=== PATIENT | male | born 1970 | race African-American/Black ===

== ENCOUNTER 2018-05-12 13:20 | Emergency (ER) | payer OTHER ==
[2018-05-12] MEDS: ALBUTEROL 0.083% (NEB) 2.5 MG/3 ML AMP HHN (13:43)
[2018-05-12 13:45] LABS: HEMOGLOBIN 12.4 g/dl (14.0-18.0); MEAN CORPUSCULAR HEMOGLOBIN 29.2 pg (29.0-33.0); MEAN CORPUSCULAR HGB CONC 35.4 g/dl (32.0-37.0); MEAN CORPUSCULAR VOLUME 82.5 fl (82.0-101.0); MEAN PLATELET VOLUME 9.9 fl (7.4-10.4); PLATELET COUNT 188 10^3/UL (140-415); POSITIVE DIFF @See below; RED BLOOD COUNT 4.24 10^6/ul (4.70-6.10); RED CELL DISTRIBUTION WIDTH 14.1 % (11.5-14.5)
[2018-05-12 13:45] LABS: WHITE BLOOD COUNT 2.6 10^3/ul (4.8-10.8)
[2018-05-12] MEDS: SOD CHLORIDE 0.9% 500 ML IV (13:51)
[2018-05-12] MEDS: KETOROLAC 30 MG INJ IV (13:51)
[2018-05-12 14:04] LABS: ALANINE AMINOTRANSFERASE 61 IU/L (13-69); ALBUMIN 3.7 g/dl (3.3-4.9); ALBUMIN/GLOBULIN RATIO 1.08; ALKALINE PHOSPHATASE 78 IU/L (42-121); ANION GAP 11 (8-16); ASPARTATE AMINO TRANSFERASE 66 IU/L (15-46); BILIRUBIN,INDIRECT 0.3 mg/dl (0-1.1); BILIRUBIN,TOTAL 0.3 mg/dl (0.2-1.3); BLOOD UREA NITROGEN 10 mg/dl (7-20); CALCIUM 8.7 mg/dl (8.4-10.2); CARBON DIOXIDE 25 mmol/L (21-31); CHLORIDE 102 mmol/L (97-110); GLUCOSE 87 mg/dl (70-220); POTASSIUM 3.1 mmol/L (3.5-5.1); SODIUM 135 mmol/L (135-144); TOTAL PROTEIN 7.1 g/dl (6.1-8.1)
[2018-05-12 14:15] LABS: B-TYPE NATRIURETIC PEPTIDE 355 PG/ML (0-125)
[2018-05-12 14:20] LABS: TROPONIN-I < 0.010 ng/ml (0.000-0.120)
[2018-05-12 14:26] LABS: ADD MAN DIFF? YES
[2018-05-12] MEDS: POTASSIUM CHLORIDE (SR) 20 MEQ TAB PO (14:29)
[2018-05-12 14:50] LABS: ANISOCYTOSIS 1+ (0-0); BAND NEUTROPHILS #M 0.5 10^3/ul (0.0-0.6); BAND NEUTROPHILS % (M) 20 % (0-4); EOSINOPHILS % (M) 7 % (0-7); GIANT THROMBO% (M) 1 % (0-0); LYMPHOCYTES #M 0.1 10^3/ul (0.8-2.9); LYMPHOCYTES % (M) 7 % (15-51); MONOCYTE #M 0.5 10^3/ul (0.3-0.9); MONOCYTES % (M) 20 % (0-11); MYELOCYTES #M 0.1 10^3/ul (0.0-0.0); MYELOCYTES % (M) 4 % (0-0); OVALOCYTES 1+ (0-0); PLATELET ESTIMATE NORMAL; POLYCHROMASIA 1+ (0-0); REACTIVE LYMPHOCYTES% (M) 2 % (0-0); SEG NEUT #M 1.1 10^3/ul (1.6-7.5); SEGMENTED NEUTROPHILS (M) % 40 % (39-77); SMUDGE%M 4 % (0-0)
== END 2018-05-12 17:25 | disposition home or self-care (01) ==
LOC: E/R 13:20
DX: J20.9 Acute bronchitis, unspecified (principal); D72.819 Decreased white blood cell count, unspecified; E87.6 Hypokalemia; F17.210 Nicotine dependence, cigarettes, uncomplicated
CPT/HCPCS: 36415; 71045; 80053; 83880; 84484; 85025; 94664; 96374; 99284-25

== ENCOUNTER 2018-06-15 11:22 | Inpatient (IN) | payer OTHER ==
[2018-06-15 11:57] LABS: ABNORMAL IP MESSAGE 1; HEMATOCRIT 35.7 % (42.0-52.0); HEMOGLOBIN 12.4 g/dl (14.0-18.0); MEAN CORPUSCULAR HEMOGLOBIN 29.5 pg (29.0-33.0); MEAN CORPUSCULAR HGB CONC 34.7 g/dl (32.0-37.0); MEAN PLATELET VOLUME 9.5 fl (7.4-10.4); PLATELET COUNT 228 10^3/UL (140-415); POSITIVE DIFF @See below; RED CELL DISTRIBUTION WIDTH 13.6 % (11.5-14.5)
[2018-06-15 12:02] LABS: ADD MAN DIFF? YES
[2018-06-15] MEDS: IPRATROPIUM (NEB) 0.5 MG/2.5 ML AMP NEB (12:03)
[2018-06-15] MEDS: LEVALBUTEROL (NEB) 1.25 MG/0.5 ML AMP INH (12:03)
[2018-06-15] MEDS: SOD CHLORIDE 0.9% 1,860 ML IV (12:07)
[2018-06-15 12:20] LABS: INR 0.88; PARTIAL THROMBOPLASTIN TIME 29.6 Sec (25.0-35.0); PT RATIO 0.9
[2018-06-15 12:28] LABS: ANISOCYTOSIS 1+ (0-0); BAND NEUTROPHILS #M 0.4 10^3/ul (0.0-0.6); BAND NEUTROPHILS % (M) 15 % (0-4); LYMPHOCYTES #M 0.3 10^3/ul (0.8-2.9); LYMPHOCYTES % (M) 13 % (15-51); MONOCYTE #M 0.3 10^3/ul (0.3-0.9); MONOCYTES % (M) 10 % (0-11); PLATELET ESTIMATE NORMAL; REACTIVE LYMPHOCYTES #M 0.1 10^3/ul (0.0-0.0); REACTIVE LYMPHOCYTES% (M) 4 % (0-0); SEG NEUT #M 1.8 10^3/ul (1.6-7.5); SEGMENTED NEUTROPHILS (M) % 58 % (39-77); SMUDGE%M 5 % (0-0)
[2018-06-15 12:48] LABS: ALANINE AMINOTRANSFERASE 32 IU/L (13-69); ALBUMIN 3.8 g/dl (3.3-4.9); ALBUMIN/GLOBULIN RATIO 0.92; ALKALINE PHOSPHATASE 86 IU/L (42-121); ANION GAP 15 (8-16); ASPARTATE AMINO TRANSFERASE 44 IU/L (15-46); BILIRUBIN,INDIRECT 0.7 mg/dl (0-1.1); BILIRUBIN,TOTAL 0.7 mg/dl (0.2-1.3); BLOOD UREA NITROGEN 13 mg/dl (7-20); CALCIUM 8.7 mg/dl (8.4-10.2); CARBON DIOXIDE 25 mmol/L (21-31); CHLORIDE 100 mmol/L (97-110); CREATININE 0.77 mg/dl (0.61-1.24); GLUCOSE 100 mg/dl (70-220); POTASSIUM 3.6 mmol/L (3.5-5.1); SODIUM 136 mmol/L (135-144); TOTAL PROTEIN 7.9 g/dl (6.1-8.1)
[2018-06-15 12:50] LABS: LACTIC ACID 1.5 mmol/L (0.5-2.0)
[2018-06-15 12:51] LABS: ETHANOL < 10.0 mg/dl
[2018-06-15 12:59] LABS: ADD UMIC YES; TROPONIN-I 0.022 ng/ml (0.000-0.120); UR ASCORBIC ACID NEGATIVE (NEGATIVE); UR BACTERIA FEW /HPF (NONE SEEN); UR BILIRUBIN (Dip) 1+ mg/dL (NEGATIVE); UR BLOOD (Dip) NEGATIVE (NEGATIVE); UR CLARITY CLEAR (CLEAR); UR COLOR AMBER (YELLOW); UR GLUCOSE (Dip) NEGATIVE (NEGATIVE); UR KETONES (Dip) NEGATIVE (NEGATIVE); UR LEUKOCYTE ESTERASE (Dip) 1+ Leu/ul (NEGATIVE); UR MUCUS FEW /HPF (NONE SEEN); UR NITRITE (Dip) NEGATIVE (NEGATIVE); UR RBC 2 /HPF (0-5); UR SPECIFIC GRAVITY (Dip) 1.027 (1.003-1.030); UR SQUAMOUS EPITHELIAL CELL FEW /HPF (FEW); UR TOTAL PROTEIN (Dip) 2+ mg/dl (NEGATIVE); UR UROBILINOGEN (Dip) 2+ mg/dL (NEGATIVE); UR WBC 10 /HPF (0-5)
[2018-06-15 13:28] LABS: BARBITURATES Negative (NEGATIVE); BENZODIAZEPINES Negative (NEGATIVE); CANNABINOIDS Positive (NEGATIVE); COCAINE Negative (NEGATIVE); OPIATES Negative (NEGATIVE)
[2018-06-15] MEDS: PIPER-TAZO 3.375 GM IV (PMX) 100 ML IVPB (13:30)
[2018-06-15 13:42] LABS: AMPHETAMINE/METHAMPHETAMINE POSITIVE (NEGATIVE)
[2018-06-15] MEDS: ACETAMINOPHEN 325 MG TAB PO (13:50)
[2018-06-15 14:50] LABS: LACTIC ACID 0.8 mmol/L (0.5-2.0)
[2018-06-15 15:52] LABS: LACTIC ACID 0.8 mmol/L (0.5-2.0)
[2018-06-15] MEDS ORDERED: ONDANSETRON 4 MG INJ IV (18:30)
[2018-06-15] MEDS: DEXTROSE 5%-0.9% NACL 1,000 ML IV (20:18)
[2018-06-15] MEDS: FAMOTIDINE 20 MG TAB PO (20:18)
[2018-06-15] MEDS: CEFTRIAXONE 1 GM/50 ML (PMX) 50 ML IVPB (20:18)
[2018-06-15] MEDS: ALBUTEROL/IPRATROPIUM (NEB) 3 ML AMP HHN (20:39)
[2018-06-16] MEDS: PIPER-TAZO 3.375 GM IV (PMX) 100 ML IVPB ×3 (01:14→18:20)
[2018-06-16 06:05] LABS: ADD MAN DIFF? NO
[2018-06-16 06:10] LABS: ABNORMAL IP MESSAGE 1; BASOPHILS % 0.6 % (0.0-2.0); EOSINOPHILS % 0.9 % (0.0-7.0); HEMATOCRIT 35.6 % (42.0-52.0); HEMOGLOBIN 12.2 g/dl (14.0-18.0); LYMPHOCYTES # 0.3 10^3/ul (0.8-2.9); LYMPHOCYTES % 8.5 % (15.0-51.0); MEAN CORPUSCULAR HEMOGLOBIN 29.6 pg (29.0-33.0); MEAN CORPUSCULAR HGB CONC 34.3 g/dl (32.0-37.0); MEAN CORPUSCULAR VOLUME 86.4 fl (82.0-101.0); MEAN PLATELET VOLUME 9.6 fl (7.4-10.4); MONOCYTE # 0.3 10^3/ul (0.3-0.9); MONOCYTES % 8.3 % (0.0-11.0); NEUTROPHIL # 2.8 10^3/ul (1.6-7.5); NEUTROPHILS % 80.8 % (39.0-77.0); PLATELET COUNT 229 10^3/UL (140-415); POSITIVE DIFF @See below; RED BLOOD COUNT 4.12 10^6/ul (4.70-6.10); RED CELL DISTRIBUTION WIDTH 13.9 % (11.5-14.5)
[2018-06-16 06:10] LABS: WHITE BLOOD COUNT 3.5 10^3/ul (4.8-10.8)
[2018-06-16] MEDS: ALBUTEROL/IPRATROPIUM (NEB) 3 ML AMP HHN ×3 (07:50→19:58)
[2018-06-16 08:16] LABS: ALANINE AMINOTRANSFERASE 33 IU/L (13-69); ALBUMIN 3.2 g/dl (3.3-4.9); ALBUMIN/GLOBULIN RATIO 0.84; ALKALINE PHOSPHATASE 70 IU/L (42-121); ANION GAP 16 (8-16); ASPARTATE AMINO TRANSFERASE 34 IU/L (15-46); BILIRUBIN,INDIRECT 0.4 mg/dl (0-1.1); BILIRUBIN,TOTAL 0.4 mg/dl (0.2-1.3); BLOOD UREA NITROGEN 9 mg/dl (7-20); CALCIUM 8.1 mg/dl (8.4-10.2); CARBON DIOXIDE 22 mmol/L (21-31); CHLORIDE 105 mmol/L (97-110); CREATININE 0.73 mg/dl (0.61-1.24); GLUCOSE 94 mg/dl (70-220); POTASSIUM 3.2 mmol/L (3.5-5.1); SODIUM 140 mmol/L (135-144)
[2018-06-16] MEDS ORDERED: EMTRICITABINE 200 MG CAP PO (09:00)
[2018-06-16] MEDS ORDERED: ATAZANAVIR 200 MG CAP PO (09:00)
[2018-06-16] MEDS: FAMOTIDINE 20 MG TAB PO ×2 (09:59→21:20)
[2018-06-16] MEDS: TENOFOVIR 300 MG TAB PO (09:59)
[2018-06-16] MEDS: FOLIC ACID 1 MG TAB PO (09:59)
[2018-06-16] MEDS: ENOXAPARIN 40 MG/0.4 ML SYG SC (10:00)
[2018-06-16] MEDS: EMTRICITABINE 200 MG CAP PO (11:15)
[2018-06-16] MEDS: DEXTROSE 5%-0.9% NACL 1,000 ML IV (15:00)
[2018-06-16] MEDS: ATAZANAVIR 200 MG CAP PO (21:20)
[2018-06-17] MEDS: PIPER-TAZO 3.375 GM IV (PMX) 100 ML IVPB ×2 (01:06→10:08)
[2018-06-17] MEDS: ALBUTEROL/IPRATROPIUM (NEB) 3 ML AMP HHN ×3 (07:36→21:18)
[2018-06-17] MEDS: EMTRICITABINE 200 MG CAP PO (09:16)
[2018-06-17] MEDS: FAMOTIDINE 20 MG TAB PO ×3 (09:17→21:31)
[2018-06-17] MEDS: ATAZANAVIR 200 MG CAP PO (09:17)
[2018-06-17] MEDS: TENOFOVIR 300 MG TAB PO (09:17)
[2018-06-17] MEDS: FOLIC ACID 1 MG TAB PO (09:17)
[2018-06-17] MEDS: ENOXAPARIN 40 MG/0.4 ML SYG SC (09:18)
[2018-06-17] MEDS: DEXTROSE 5%-0.9% NACL 1,000 ML IV ×2 (11:00→18:40)
[2018-06-17] MEDS: CEFTRIAXONE 1 GM/50 ML (PMX) 50 ML IVPB (15:10)
[2018-06-18 05:38] LABS: ADD MAN DIFF? NO
[2018-06-18 05:45] LABS: ABNORMAL IP MESSAGE 1; BASOPHILS % 0.7 % (0.0-2.0); EOSINOPHILS # 0.1 10^3/ul (0.0-0.5); EOSINOPHILS % 2.7 % (0.0-7.0); HEMATOCRIT 34.5 % (42.0-52.0); LYMPHOCYTES # 0.3 10^3/ul (0.8-2.9); LYMPHOCYTES % 11.5 % (15.0-51.0); MEAN CORPUSCULAR HEMOGLOBIN 29.7 pg (29.0-33.0); MEAN CORPUSCULAR HGB CONC 34.8 g/dl (32.0-37.0); MEAN CORPUSCULAR VOLUME 85.4 fl (82.0-101.0); MEAN PLATELET VOLUME 9.8 fl (7.4-10.4); MONOCYTE # 0.3 10^3/ul (0.3-0.9); MONOCYTES % 10.5 % (0.0-11.0); NEUTROPHIL # 2.2 10^3/ul (1.6-7.5); NEUTROPHILS % 73.6 % (39.0-77.0); PLATELET COUNT 270 10^3/UL (140-415); POSITIVE DIFF @See below; RED BLOOD COUNT 4.04 10^6/ul (4.70-6.10); RED CELL DISTRIBUTION WIDTH 13.6 % (11.5-14.5)
[2018-06-18 06:06] LABS: ANION GAP 8 (8-16); BLOOD UREA NITROGEN 7 mg/dl (7-20); CALCIUM 8.4 mg/dl (8.4-10.2); CARBON DIOXIDE 29 mmol/L (21-31); CHLORIDE 105 mmol/L (97-110); CREATININE 0.68 mg/dl (0.61-1.24); GLUCOSE 94 mg/dl (70-220); POTASSIUM 3.3 mmol/L (3.5-5.1); SODIUM 139 mmol/L (135-144)
[2018-06-18] MEDS: DEXTROSE 5%-0.9% NACL 1,000 ML IV ×2 (06:23→16:04)
[2018-06-18] MEDS: ALBUTEROL/IPRATROPIUM (NEB) 3 ML AMP HHN ×3 (08:14→19:53)
[2018-06-18] MEDS: FOLIC ACID 1 MG TAB PO (09:26)
[2018-06-18] MEDS: FAMOTIDINE 20 MG TAB PO ×2 (09:26→21:09)
[2018-06-18] MEDS: TENOFOVIR 300 MG TAB PO (09:26)
[2018-06-18] MEDS: ATAZANAVIR 200 MG CAP PO (09:26)
[2018-06-18] MEDS: ENOXAPARIN 40 MG/0.4 ML SYG SC (09:29)
[2018-06-18] MEDS: BISACODYL (EC) 5 MG TAB PO ×2 (10:34→15:03)
[2018-06-18] MEDS: EMTRICITABINE 200 MG CAP PO (10:34)
[2018-06-18 14:38] LABS: LYMPHOCYTE - % CD4 (HELPER) 3 % (30-61); LYMPHOCYTE - %CD8 (SUPPRESSOR) 40 % (12-42); LYMPHOCYTE - ABSOLUTE 226 cells/uL (850-3900); LYMPHOCYTE - ABSOLUTE CD4 <20 cells/uL (490-1740); LYMPHOCYTE - ABSOLUTE CD8 90 cells/uL (180-1170); LYMPHOCYTE - CD4/CD8 RATIO 0.07 (0.86-5.00)
[2018-06-19] MEDS: DEXTROSE 5%-0.9% NACL 1,000 ML IV ×2 (02:12→12:54)
[2018-06-19] MEDS: ALBUTEROL/IPRATROPIUM (NEB) 3 ML AMP HHN ×3 (08:00→19:45)
[2018-06-19] MEDS: ATAZANAVIR 200 MG CAP PO (09:14)
[2018-06-19] MEDS: EMTRICITABINE 200 MG CAP PO (09:14)
[2018-06-19] MEDS: FOLIC ACID 1 MG TAB PO (09:14)
[2018-06-19] MEDS: TENOFOVIR 300 MG TAB PO (09:14)
[2018-06-19] MEDS: FAMOTIDINE 20 MG TAB PO ×2 (09:14→20:04)
[2018-06-19] MEDS: ENOXAPARIN 40 MG/0.4 ML SYG SC (09:16)
[2018-06-19] MEDS: TRIMETHOPRIM/SULFAMETHOX (DS) TAB PO (11:26)
[2018-06-19] MEDS: FLUCONAZOLE 200 MG TAB PO (11:27)
[2018-06-19] MEDS: ACYCLOVIR 400 MG TAB PO ×2 (12:32→20:04)
[2018-06-19] MEDS: AZITHROMYCIN 600 MG TAB PO (12:48)
[2018-06-19] MEDS: morphine 2 MG INJ IV (21:08)
[2018-06-20] MEDS: ALBUTEROL/IPRATROPIUM (NEB) 3 ML AMP HHN ×3 (08:09→20:00)
[2018-06-20] MEDS: ATAZANAVIR 200 MG CAP PO (09:08)
[2018-06-20] MEDS: ACYCLOVIR 400 MG TAB PO ×2 (09:08→21:24)
[2018-06-20] MEDS: FLUCONAZOLE 200 MG TAB PO (09:09)
[2018-06-20] MEDS: TRIMETHOPRIM/SULFAMETHOX (DS) TAB PO (09:09)
[2018-06-20] MEDS: FOLIC ACID 1 MG TAB PO (09:09)
[2018-06-20] MEDS: TENOFOVIR 300 MG TAB PO (09:09)
[2018-06-20] MEDS: EMTRICITABINE 200 MG CAP PO (09:09)
[2018-06-20] MEDS: FAMOTIDINE 20 MG TAB PO ×2 (09:09→21:23)
[2018-06-20] MEDS: ENOXAPARIN 40 MG/0.4 ML SYG SC (09:14)
[2018-06-20] MEDS: DEXTROSE 5%-0.9% NACL 1,000 ML IV ×2 (09:22→19:00)
[2018-06-20] MEDS: morphine 2 MG INJ IV (21:46)
[2018-06-21 05:37] LABS: ADD MAN DIFF? NO
[2018-06-21 05:49] LABS: ABNORMAL IP MESSAGE 1; BASOPHILS % 0.7 % (0.0-2.0); EOSINOPHILS # 0.2 10^3/ul (0.0-0.5); EOSINOPHILS % 6.6 % (0.0-7.0); HEMATOCRIT 32.5 % (42.0-52.0); HEMOGLOBIN 11.1 g/dl (14.0-18.0); LYMPHOCYTES # 0.4 10^3/ul (0.8-2.9); LYMPHOCYTES % 12.8 % (15.0-51.0); MEAN CORPUSCULAR HEMOGLOBIN 29.1 pg (29.0-33.0); MEAN CORPUSCULAR HGB CONC 34.2 g/dl (32.0-37.0); MEAN CORPUSCULAR VOLUME 85.3 fl (82.0-101.0); MEAN PLATELET VOLUME 9.6 fl (7.4-10.4); MONOCYTE # 0.3 10^3/ul (0.3-0.9); NEUTROPHILS % 68.5 % (39.0-77.0); PLATELET COUNT 308 10^3/UL (140-415); POSITIVE DIFF @See below; RED BLOOD COUNT 3.81 10^6/ul (4.70-6.10); RED CELL DISTRIBUTION WIDTH 14.1 % (11.5-14.5)
[2018-06-21 05:49] LABS: WHITE BLOOD COUNT 2.9 10^3/ul (4.8-10.8)
[2018-06-21] MEDS: DEXTROSE 5%-0.9% NACL 1,000 ML IV (06:14)
[2018-06-21 06:24] LABS: ANION GAP 7 (8-16); BLOOD UREA NITROGEN 8 mg/dl (7-20); CALCIUM 8.7 mg/dl (8.4-10.2); CARBON DIOXIDE 27 mmol/L (21-31); CHLORIDE 111 mmol/L (97-110); CREATININE 0.54 mg/dl (0.61-1.24); GLUCOSE 100 mg/dl (70-220); POTASSIUM 3.7 mmol/L (3.5-5.1); SODIUM 141 mmol/L (135-144)
[2018-06-21] MEDS: ALBUTEROL/IPRATROPIUM (NEB) 3 ML AMP HHN ×3 (08:18→20:16)
[2018-06-21] MEDS: FAMOTIDINE 20 MG TAB PO ×2 (09:00→21:21)
[2018-06-21] MEDS: EMTRICITABINE 200 MG CAP PO (09:00)
[2018-06-21] MEDS: ATAZANAVIR 200 MG CAP PO (09:00)
[2018-06-21] MEDS: FOLIC ACID 1 MG TAB PO (09:00)
[2018-06-21] MEDS: FLUCONAZOLE 200 MG TAB PO (09:00)
[2018-06-21] MEDS: TENOFOVIR 300 MG TAB PO (09:00)
[2018-06-21] MEDS: TRIMETHOPRIM/SULFAMETHOX (DS) TAB PO (09:00)
[2018-06-21] MEDS: ACYCLOVIR 400 MG TAB PO ×2 (09:01→21:21)
[2018-06-21] MEDS: ENOXAPARIN 40 MG/0.4 ML SYG SC (10:04)
[2018-06-21] MEDS: morphine 2 MG INJ IV (16:36)
[2018-06-22] MEDS: DEXTROSE 5%-0.9% NACL 1,000 ML IV (03:41)
[2018-06-22] MEDS: ALBUTEROL/IPRATROPIUM (NEB) 3 ML AMP HHN ×3 (08:09→19:15)
[2018-06-22] MEDS: FOLIC ACID 1 MG TAB PO (10:05)
[2018-06-22] MEDS: FAMOTIDINE 20 MG TAB PO ×2 (10:05→20:28)
[2018-06-22] MEDS: TRIMETHOPRIM/SULFAMETHOX (DS) TAB PO (10:05)
[2018-06-22] MEDS: FLUCONAZOLE 200 MG TAB PO (10:06)
[2018-06-22] MEDS: ATAZANAVIR 200 MG CAP PO (10:06)
[2018-06-22] MEDS: EMTRICITABINE 200 MG CAP PO (10:06)
[2018-06-22] MEDS: ACYCLOVIR 400 MG TAB PO ×2 (10:06→20:28)
[2018-06-22] MEDS: TENOFOVIR 300 MG TAB PO (10:06)
[2018-06-22] MEDS: morphine 2 MG INJ IV (12:10)
[2018-06-22] MEDS: ENOXAPARIN 40 MG/0.4 ML SYG SC (14:15)
[2018-06-23] MEDS: DEXTROSE 5%-0.9% NACL 1,000 ML IV ×2 (01:40→20:22)
[2018-06-23] MEDS: ACETAMINOPHEN 325 MG TAB PO ×2 (03:33→20:22)
[2018-06-23] MEDS: ALBUTEROL/IPRATROPIUM (NEB) 3 ML AMP HHN ×3 (08:04→19:24)
[2018-06-23] MEDS: EMTRICITABINE 200 MG CAP PO (08:54)
[2018-06-23] MEDS: FOLIC ACID 1 MG TAB PO (08:54)
[2018-06-23] MEDS: TRIMETHOPRIM/SULFAMETHOX (DS) TAB PO (08:54)
[2018-06-23] MEDS: TENOFOVIR 300 MG TAB PO (08:54)
[2018-06-23] MEDS: FLUCONAZOLE 200 MG TAB PO (08:54)
[2018-06-23] MEDS: FAMOTIDINE 20 MG TAB PO ×2 (08:54→20:22)
[2018-06-23] MEDS: ACYCLOVIR 400 MG TAB PO ×2 (08:54→20:22)
[2018-06-23] MEDS: ATAZANAVIR 200 MG CAP PO (08:54)
[2018-06-23] MEDS: ENOXAPARIN 40 MG/0.4 ML SYG SC (09:00)
[2018-06-23] MEDS: morphine 2 MG INJ IV (15:08)
[2018-06-23] MEDS: DOCUSATE SODIUM 100 MG CAP PO (15:14)
[2018-06-23] MEDS: BISACODYL (EC) 5 MG TAB PO (15:14)
[2018-06-24] MEDS: DEXTROSE 5%-0.9% NACL 1,000 ML IV ×2 (03:00→17:42)
[2018-06-24] MEDS: morphine 2 MG INJ IV ×2 (06:05→18:17)
[2018-06-24] MEDS: ALBUTEROL/IPRATROPIUM (NEB) 3 ML AMP HHN ×3 (07:49→19:41)
[2018-06-24] MEDS: ENOXAPARIN 40 MG/0.4 ML SYG SC (09:00)
[2018-06-24] MEDS: ACYCLOVIR 400 MG TAB PO ×2 (09:47→21:12)
[2018-06-24] MEDS: TRIMETHOPRIM/SULFAMETHOX (DS) TAB PO (09:47)
[2018-06-24] MEDS: FAMOTIDINE 20 MG TAB PO ×2 (09:47→21:13)
[2018-06-24] MEDS: FOLIC ACID 1 MG TAB PO (09:47)
[2018-06-24] MEDS: TENOFOVIR 300 MG TAB PO (09:47)
[2018-06-24] MEDS: ATAZANAVIR 200 MG CAP PO (09:47)
[2018-06-24] MEDS: EMTRICITABINE 200 MG CAP PO (09:47)
[2018-06-24] MEDS: FLUCONAZOLE 200 MG TAB PO (09:47)
[2018-06-24] MEDS: ACETAMINOPHEN 325 MG TAB PO (21:12)
[2018-06-25] MEDS: morphine 2 MG INJ IV ×3 (05:47→17:59)
[2018-06-25] MEDS: ALBUTEROL/IPRATROPIUM (NEB) 3 ML AMP HHN ×4 (07:32→19:29)
[2018-06-25] MEDS: ATAZANAVIR 200 MG CAP PO (08:41)
[2018-06-25] MEDS: ACYCLOVIR 400 MG TAB PO ×2 (08:41→20:49)
[2018-06-25] MEDS: FLUCONAZOLE 200 MG TAB PO (08:41)
[2018-06-25] MEDS: TRIMETHOPRIM/SULFAMETHOX (DS) TAB PO (08:41)
[2018-06-25] MEDS: EMTRICITABINE 200 MG CAP PO (08:41)
[2018-06-25] MEDS: FOLIC ACID 1 MG TAB PO (08:42)
[2018-06-25] MEDS: FAMOTIDINE 20 MG TAB PO ×2 (08:42→20:49)
[2018-06-25] MEDS: TENOFOVIR 300 MG TAB PO (08:42)
[2018-06-25] MEDS: ENOXAPARIN 40 MG/0.4 ML SYG SC (08:42)
[2018-06-25] MEDS: ACETAMINOPHEN 325 MG TAB PO ×2 (13:50→20:49)
[2018-06-25] MEDS: DEXTROSE 5%-0.9% NACL 1,000 ML IV (13:52)
[2018-06-25 14:09] LABS: PROSTATE SPECIFIC ANTIGEN 0.2 ng/ml (0.0-4.0)
[2018-06-25] MEDS: TAMSULOSIN (SR) 0.4 MG CAP PO (20:49)
[2018-06-26] MEDS: morphine 2 MG INJ IV ×3 (00:19→21:13)
[2018-06-26] MEDS: ALBUTEROL/IPRATROPIUM (NEB) 3 ML AMP HHN ×4 (05:29→19:17)
[2018-06-26 06:10] LABS: ADD MAN DIFF? NO
[2018-06-26 06:15] LABS: ABNORMAL IP MESSAGE 1; BASOPHILS % 0.4 % (0.0-2.0); EOSINOPHILS # 0.1 10^3/ul (0.0-0.5); EOSINOPHILS % 0.9 % (0.0-7.0); HEMATOCRIT 34.6 % (42.0-52.0); HEMOGLOBIN 11.9 g/dl (14.0-18.0); LYMPHOCYTES # 0.5 10^3/ul (0.8-2.9); LYMPHOCYTES % 9.9 % (15.0-51.0); MEAN CORPUSCULAR HEMOGLOBIN 28.9 pg (29.0-33.0); MEAN CORPUSCULAR HGB CONC 34.4 g/dl (32.0-37.0); MEAN PLATELET VOLUME 9.6 fl (7.4-10.4); MONOCYTE # 0.4 10^3/ul (0.3-0.9); MONOCYTES % 6.4 % (0.0-11.0); NEUTROPHIL # 4.4 10^3/ul (1.6-7.5); NEUTROPHILS % 81.3 % (39.0-77.0); PLATELET COUNT 357 10^3/UL (140-415); POSITIVE DIFF @See below; RED BLOOD COUNT 4.12 10^6/ul (4.70-6.10); RED CELL DISTRIBUTION WIDTH 13.9 % (11.5-14.5)
[2018-06-26 06:15] LABS: WHITE BLOOD COUNT 5.4 10^3/ul (4.8-10.8)
[2018-06-26 06:45] LABS: ANION GAP 15 (8-16); BLOOD UREA NITROGEN 12 mg/dl (7-20); CALCIUM 9.2 mg/dl (8.4-10.2); CARBON DIOXIDE 24 mmol/L (21-31); CHLORIDE 98 mmol/L (97-110); CREATININE 0.81 mg/dl (0.61-1.24); GLUCOSE 122 mg/dl (70-220); POTASSIUM 4.6 mmol/L (3.5-5.1); SODIUM 132 mmol/L (135-144)
[2018-06-26] MEDS: ATAZANAVIR 200 MG CAP PO (08:10)
[2018-06-26] MEDS: FOLIC ACID 1 MG TAB PO (08:10)
[2018-06-26] MEDS: FLUCONAZOLE 200 MG TAB PO (08:10)
[2018-06-26] MEDS: TRIMETHOPRIM/SULFAMETHOX (DS) TAB PO (08:10)
[2018-06-26] MEDS: TENOFOVIR 300 MG TAB PO (08:10)
[2018-06-26] MEDS: ACYCLOVIR 400 MG TAB PO ×2 (08:10→21:05)
[2018-06-26] MEDS: EMTRICITABINE 200 MG CAP PO (08:10)
[2018-06-26] MEDS: FAMOTIDINE 20 MG TAB PO ×2 (08:10→21:05)
[2018-06-26] MEDS: ENOXAPARIN 40 MG/0.4 ML SYG SC (08:12)
[2018-06-26] MEDS: DEXTROSE 5%-0.9% NACL 1,000 ML IV (10:01)
[2018-06-26] MEDS ORDERED: VANCOMYCIN IV PER PHARMACY XX (15:30)
[2018-06-26] MEDS: AZITHROMYCIN 600 MG TAB PO (15:46)
[2018-06-26] MEDS: MEROPENEM 500MG/50 ML (PMX) 50 ML IVPB ×2 (16:31→23:11)
[2018-06-26] MEDS: VANCOMYCIN 1.25 GM in SOD CHLORIDE 0.9% 250 ML IVPB (17:11)
[2018-06-26] MEDS: ACETAMINOPHEN 325 MG TAB PO (18:51)
[2018-06-26] MEDS: ZOLPIDEM 5 MG TAB PO (21:05)
[2018-06-26] MEDS: TAMSULOSIN (SR) 0.4 MG CAP PO (21:06)
[2018-06-27] MEDS: VANCOMYCIN 750 MG in SOD CHLORIDE 0.9% 150 ML IVPB ×2 (04:51→16:45)
[2018-06-27] MEDS: ACETAMINOPHEN 325 MG TAB PO ×2 (04:56→14:16)
[2018-06-27] MEDS: MEROPENEM 500MG/50 ML (PMX) 50 ML IVPB ×3 (06:26→22:02)
[2018-06-27] MEDS: FOLIC ACID 1 MG TAB PO (08:26)
[2018-06-27] MEDS: TENOFOVIR 300 MG TAB PO (08:26)
[2018-06-27] MEDS: FAMOTIDINE 20 MG TAB PO ×2 (08:26→20:48)
[2018-06-27] MEDS: FLUCONAZOLE 200 MG TAB PO (08:26)
[2018-06-27] MEDS: ACYCLOVIR 400 MG TAB PO ×2 (08:26→20:48)
[2018-06-27] MEDS: EMTRICITABINE 200 MG CAP PO (08:26)
[2018-06-27] MEDS: TRIMETHOPRIM/SULFAMETHOX (DS) TAB PO (08:26)
[2018-06-27] MEDS: ATAZANAVIR 200 MG CAP PO (08:26)
[2018-06-27] MEDS: ENOXAPARIN 40 MG/0.4 ML SYG SC (08:27)
[2018-06-27] MEDS: ALBUTEROL/IPRATROPIUM (NEB) 3 ML AMP HHN ×3 (08:39→21:20)
[2018-06-27] MEDS: morphine 2 MG INJ IV ×3 (09:20→23:55)
[2018-06-27] MEDS: DEXTROSE 5%-0.9% NACL 1,000 ML IV ×2 (11:00→20:52)
[2018-06-27] MEDS: TAMSULOSIN (SR) 0.4 MG CAP PO (20:48)
[2018-06-28] MEDS: morphine 2 MG INJ IV ×3 (04:59→18:32)
[2018-06-28 05:16] LABS: WHITE BLOOD COUNT 3.9 10^3/ul (4.8-10.8)
[2018-06-28 05:16] LABS: HEMATOCRIT 32.8 % (42.0-52.0); HEMOGLOBIN 11.4 g/dl (14.0-18.0); MEAN CORPUSCULAR HEMOGLOBIN 29.1 pg (29.0-33.0); MEAN CORPUSCULAR HGB CONC 34.8 g/dl (32.0-37.0); MEAN CORPUSCULAR VOLUME 83.7 fl (82.0-101.0); MEAN PLATELET VOLUME 9.6 fl (7.4-10.4); PLATELET COUNT 344 10^3/UL (140-415); RED BLOOD COUNT 3.92 10^6/ul (4.70-6.10); RED CELL DISTRIBUTION WIDTH 13.6 % (11.5-14.5)
[2018-06-28 05:17] LABS: ABNORMAL IP MESSAGE 1; POSITIVE DIFF @See below
[2018-06-28] MEDS: MEROPENEM 500MG/50 ML (PMX) 50 ML IVPB (05:18)
[2018-06-28 05:37] LABS: ANION GAP 13 (8-16); BLOOD UREA NITROGEN 14 mg/dl (7-20); CALCIUM 9.1 mg/dl (8.4-10.2); CARBON DIOXIDE 25 mmol/L (21-31); CHLORIDE 98 mmol/L (97-110); GLUCOSE 109 mg/dl (70-220); POTASSIUM 4.8 mmol/L (3.5-5.1); SODIUM 131 mmol/L (135-144)
[2018-06-28 05:38] LABS: VANCOMYCIN,TROUGH 7.6 ug/ml (10.0-20.0)
[2018-06-28] MEDS: VANCOMYCIN 750 MG in SOD CHLORIDE 0.9% 150 ML IVPB (05:42)
[2018-06-28 06:16] LABS: ADD MAN DIFF? YES
[2018-06-28] MEDS: ALBUTEROL/IPRATROPIUM (NEB) 3 ML AMP HHN ×3 (08:10→20:16)
[2018-06-28] MEDS: ATAZANAVIR 200 MG CAP PO (08:37)
[2018-06-28] MEDS: ACYCLOVIR 400 MG TAB PO ×2 (08:37→21:09)
[2018-06-28] MEDS: FLUCONAZOLE 200 MG TAB PO (08:37)
[2018-06-28] MEDS: TENOFOVIR 300 MG TAB PO (08:37)
[2018-06-28] MEDS: FAMOTIDINE 20 MG TAB PO ×2 (08:37→21:09)
[2018-06-28] MEDS: FOLIC ACID 1 MG TAB PO (08:37)
[2018-06-28] MEDS: EMTRICITABINE 200 MG CAP PO (08:37)
[2018-06-28] MEDS: TRIMETHOPRIM/SULFAMETHOX (DS) TAB PO (08:37)
[2018-06-28] MEDS: ENOXAPARIN 40 MG/0.4 ML SYG SC (08:38)
[2018-06-28 10:35] LABS: ANISOCYTOSIS 1+ (0-0); BAND NEUTROPHILS #M 0.2 10^3/ul (0.0-0.6); BAND NEUTROPHILS % (M) 7 % (0-4); EOSINOPHILS % (M) 1 % (0-7); LYMPHOCYTES #M 0.1 10^3/ul (0.8-2.9); LYMPHOCYTES % (M) 4 % (15-51); METAMYELOCYTES %M 1 % (0-0); MONOCYTE #M 0.5 10^3/ul (0.3-0.9); MONOCYTES % (M) 13 % (0-11); MYELOCYTES % (M) 1 % (0-0); PLATELET ESTIMATE NORMAL; POLYCHROMASIA 1+ (0-0); REACTIVE LYMPHOCYTES% (M) 1 % (0-0); SEG NEUT #M 2.8 10^3/ul (1.6-7.5); SEGMENTED NEUTROPHILS (M) % 72 % (39-77); SMUDGE%M 2 % (0-0); SPHEROCYTES 1+ (0-0)
[2018-06-28] MEDS: MEROPENEM 1 GM/50ML(PMX) 50 ML IVPB ×2 (14:39→21:09)
[2018-06-28] MEDS: TRIMETHOPRIM/SULFAMETHOXAZOLE 10 ML in DEXTROSE 5% 250 ML IVPB (15:14)
[2018-06-28] MEDS: VANCOMYCIN 1.25 GM in SOD CHLORIDE 0.9% 250 ML IVPB (18:10)
[2018-06-28] MEDS ORDERED: TAMSULOSIN (SR) 0.4 MG CAP PO (21:00)
[2018-06-28] MEDS: TAMSULOSIN (SR) 0.4 MG CAP PO (21:09)
[2018-06-29] MEDS: TRIMETHOPRIM/SULFAMETHOXAZOLE 10 ML in DEXTROSE 5% 250 ML IVPB ×3 (00:45→14:38)
[2018-06-29] MEDS: DEXTROSE 5%-0.9% NACL 1,000 ML IV (00:53)
[2018-06-29] MEDS: ACETAMINOPHEN 325 MG TAB PO (03:49)
[2018-06-29] MEDS: BISACODYL (EC) 5 MG TAB PO (03:50)
[2018-06-29] MEDS: VANCOMYCIN 1.25 GM in SOD CHLORIDE 0.9% 250 ML IVPB ×2 (04:45→17:34)
[2018-06-29] MEDS: morphine 2 MG INJ IV ×3 (05:17→21:27)
[2018-06-29 06:13] LABS: CREATININE 0.88 mg/dl (0.61-1.24)
[2018-06-29 06:13] LABS: BLOOD UREA NITROGEN 12 mg/dl (7-20)
[2018-06-29] MEDS: MEROPENEM 1 GM/50ML(PMX) 50 ML IVPB ×3 (06:46→21:22)
[2018-06-29] MEDS: TENOFOVIR 300 MG TAB PO (08:37)
[2018-06-29] MEDS: ACYCLOVIR 400 MG TAB PO ×2 (08:38→21:22)
[2018-06-29] MEDS: FLUCONAZOLE 200 MG TAB PO (08:38)
[2018-06-29] MEDS: EMTRICITABINE 200 MG CAP PO (08:38)
[2018-06-29] MEDS: FOLIC ACID 1 MG TAB PO (08:38)
[2018-06-29] MEDS: FAMOTIDINE 20 MG TAB PO ×2 (08:39→21:22)
[2018-06-29] MEDS: ATAZANAVIR 200 MG CAP PO (08:39)
[2018-06-29] MEDS: ENOXAPARIN 40 MG/0.4 ML SYG SC (08:41)
[2018-06-29] MEDS: ALBUTEROL/IPRATROPIUM (NEB) 3 ML AMP HHN ×3 (08:53→19:59)
[2018-06-29] MEDS: TAMSULOSIN (SR) 0.4 MG CAP PO (21:22)
[2018-06-29] MEDS: TRIMETHOPRIM/SULFAMETHOXAZOLE 20 ML in DEXTROSE 5% 500 ML IVPB (22:22)
[2018-06-30 04:30] LABS: VANCOMYCIN,TROUGH 14.8 ug/ml (10.0-20.0)
[2018-06-30] MEDS: VANCOMYCIN 1.25 GM in SOD CHLORIDE 0.9% 250 ML IVPB (04:59)
[2018-06-30] MEDS: TRIMETHOPRIM/SULFAMETHOXAZOLE 20 ML in DEXTROSE 5% 500 ML IVPB ×3 (05:32→21:53)
[2018-06-30] MEDS: DEXTROSE 5%-0.9% NACL 1,000 ML IV ×3 (06:28→18:51)
[2018-06-30] MEDS: MEROPENEM 1 GM/50ML(PMX) 50 ML IVPB ×3 (06:55→21:07)
[2018-06-30] MEDS: ALBUTEROL/IPRATROPIUM (NEB) 3 ML AMP HHN ×3 (08:00→20:28)
[2018-06-30] MEDS: TENOFOVIR 300 MG TAB PO (08:37)
[2018-06-30] MEDS: ATAZANAVIR 200 MG CAP PO (08:37)
[2018-06-30] MEDS: FAMOTIDINE 20 MG TAB PO ×2 (08:37→20:20)
[2018-06-30] MEDS: FOLIC ACID 1 MG TAB PO (08:37)
[2018-06-30] MEDS: ACYCLOVIR 400 MG TAB PO ×2 (08:37→20:20)
[2018-06-30] MEDS: EMTRICITABINE 200 MG CAP PO (08:37)
[2018-06-30] MEDS: FLUCONAZOLE 200 MG TAB PO (08:37)
[2018-06-30] MEDS: ENOXAPARIN 40 MG/0.4 ML SYG SC (08:38)
[2018-06-30] MEDS: morphine 2 MG INJ IV ×3 (11:30→20:20)
[2018-06-30] MEDS: METHYLPREDNISOLONE 40 MG INJ IV ×3 (12:43→23:38)
[2018-06-30] MEDS: TAMSULOSIN (SR) 0.4 MG CAP PO (20:20)
[2018-07-01] MEDS: MEROPENEM 1 GM/50ML(PMX) 50 ML IVPB ×3 (05:12→22:13)
[2018-07-01] MEDS: METHYLPREDNISOLONE 40 MG INJ IV ×3 (05:12→17:58)
[2018-07-01] MEDS: TRIMETHOPRIM/SULFAMETHOXAZOLE 20 ML in DEXTROSE 5% 500 ML IVPB ×3 (06:01→22:59)
[2018-07-01 06:32] LABS: CREATININE 0.75 mg/dl (0.61-1.24)
[2018-07-01 06:32] LABS: BLOOD UREA NITROGEN 13 mg/dl (7-20)
[2018-07-01] MEDS: morphine 2 MG INJ IV ×4 (06:44→22:13)
[2018-07-01] MEDS: ALBUTEROL/IPRATROPIUM (NEB) 3 ML AMP HHN ×3 (08:05→20:54)
[2018-07-01] MEDS: EMTRICITABINE 200 MG CAP PO (08:20)
[2018-07-01] MEDS: FAMOTIDINE 20 MG TAB PO ×2 (08:20→20:05)
[2018-07-01] MEDS: FOLIC ACID 1 MG TAB PO (08:20)
[2018-07-01] MEDS: FLUCONAZOLE 200 MG TAB PO (08:20)
[2018-07-01] MEDS: TENOFOVIR 300 MG TAB PO (08:20)
[2018-07-01] MEDS: ACYCLOVIR 400 MG TAB PO ×2 (08:20→20:05)
[2018-07-01] MEDS: ATAZANAVIR 200 MG CAP PO (08:20)
[2018-07-01] MEDS: ENOXAPARIN 40 MG/0.4 ML SYG SC (08:23)
[2018-07-01] MEDS: DEXTROSE 5%-0.9% NACL 1,000 ML IV (16:11)
[2018-07-01] MEDS: TAMSULOSIN (SR) 0.4 MG CAP PO (20:05)
[2018-07-02] MEDS: METHYLPREDNISOLONE 40 MG INJ IV ×2 (00:04→05:17)
[2018-07-02] MEDS: MEROPENEM 1 GM/50ML(PMX) 50 ML IVPB (05:17)
[2018-07-02] MEDS: TRIMETHOPRIM/SULFAMETHOXAZOLE 20 ML in DEXTROSE 5% 500 ML IVPB (06:07)
[2018-07-02] MEDS: ALBUTEROL/IPRATROPIUM (NEB) 3 ML AMP HHN (08:38)
[2018-07-02] MEDS: ENOXAPARIN 40 MG/0.4 ML SYG SC (09:00)
[2018-07-02] MEDS: EMTRICITABINE 200 MG CAP PO (09:44)
[2018-07-02] MEDS: FLUCONAZOLE 200 MG TAB PO (09:44)
[2018-07-02] MEDS: FOLIC ACID 1 MG TAB PO (09:44)
[2018-07-02] MEDS: TENOFOVIR 300 MG TAB PO (09:45)
[2018-07-02] MEDS: ACYCLOVIR 400 MG TAB PO (09:45)
[2018-07-02] MEDS: FAMOTIDINE 20 MG TAB PO (09:45)
[2018-07-02] MEDS: ATAZANAVIR 200 MG CAP PO (09:45)
[2018-07-12 14:04] LABS: LYMPHOCYTE - % CD4 (HELPER) 20 % (30-61); LYMPHOCYTE - %CD8 (SUPPRESSOR) 43 % (12-42); LYMPHOCYTE - ABSOLUTE 381 cells/uL (850-3900); LYMPHOCYTE - ABSOLUTE CD4 75 cells/uL (490-1740); LYMPHOCYTE - ABSOLUTE CD8 165 cells/uL (180-1170); LYMPHOCYTE - CD4/CD8 RATIO 0.46 (0.86-5.00)
== END 2018-07-02 11:10 | disposition left against medical advice (07) | DRG 975 ==
LOC: MS2 06-24 01:06 → 5EC 07-01 14:02 → MS4 07-01 15:23 → E/R 11:22 → 5EC 07-01 15:23 → MS2 15:30
DX: B20 Human immunodeficiency virus [HIV] disease (principal); J18.9 Pneumonia, unspecified organism; N39.0 Urinary tract infection, site not specified; A41.9 Sepsis, unspecified organism; B59 Pneumocystosis; Z91.14 Patient's other noncompliance with medication regimen; F17.200 Nicotine dependence, unspecified, uncomplicated; E86.0 Dehydration; D64.9 Anemia, unspecified; R33.9 Retention of urine, unspecified; F19.10 Other psychoactive substance abuse, uncomplicated; F06.8 Other specified mental disorders due to known physiological condition; D63.8 Anemia in other chronic diseases classified elsewhere; F15.10 Other stimulant abuse, uncomplicated; Z86.73 Personal history of transient ischemic attack (TIA), and cerebral infarction without residual deficits; Y95 Nosocomial condition
CPT/HCPCS: 36415; 71045; 80048; 80053; 80202; 80307; 81001; 82565; 83605; 84153; 84154; 84484; 84520; 85025; 85610; 85730; 86360; 87040; 87086; 93005; 94640; 94664; 96361; 96365; 97110; 97116; 97163; 97530; 99285-25

== ENCOUNTER 2019-01-11 16:54 | Inpatient (IN) | payer OTHER ==
[2019-01-11 22:27] LABS: HEMATOCRIT 34.7 % (42.0-52.0); HEMOGLOBIN 11.6 g/dl (14.0-18.0); MEAN CORPUSCULAR HEMOGLOBIN 28.8 pg (29.0-33.0); MEAN CORPUSCULAR HGB CONC 33.4 g/dl (32.0-37.0); MEAN CORPUSCULAR VOLUME 86.1 fl (82.0-101.0); PLATELET COUNT 191 10^3/UL (140-415); RED BLOOD COUNT 4.03 10^6/ul (4.70-6.10); RED CELL DISTRIBUTION WIDTH 14.9 % (11.5-14.5)
[2019-01-11 22:28] LABS: ABNORMAL IP MESSAGE 1; POSITIVE DIFF @See below
[2019-01-11] MEDS: SODIUM CHLORIDE 0.9% 1L BAG IV* (22:29)
[2019-01-11 22:34] LABS: ADD MAN DIFF? YES
[2019-01-11 22:45] LABS: ALANINE AMINOTRANSFERASE 25 IU/L (13-69); ALBUMIN 3.9 g/dl (3.3-4.9); ALBUMIN/GLOBULIN RATIO 1.05; ALKALINE PHOSPHATASE 86 IU/L (42-121); ANION GAP 8 (5-13); ASPARTATE AMINO TRANSFERASE 33 IU/L (15-46); BILIRUBIN,INDIRECT 0.2 mg/dl (0-1.1); BILIRUBIN,TOTAL 0.2 mg/dl (0.2-1.3); BLOOD UREA NITROGEN 12 mg/dl (7-20); CARBON DIOXIDE 25 mmol/L (21-31); CHLORIDE 104 mmol/L (97-110); CREATININE 0.71 mg/dl (0.61-1.24); Estimated GFR > 60 mL/min (>60); GLUCOSE 92 mg/dl (70-220); POTASSIUM 3.4 mmol/L (3.5-5.1); SODIUM 137 mmol/L (135-144); TOTAL PROTEIN 7.6 g/dl (6.1-8.1)
[2019-01-11 22:47] LABS: INR 0.84; PARTIAL THROMBOPLASTIN TIME 29.4 Sec (23.0-35.0); PROTIME 11.6 Sec (11.9-14.9); PT RATIO 0.9
[2019-01-11 22:56] LABS: ANISOCYTOSIS 1+ (0-0); BAND NEUTROPHILS % (M) 1 % (0-4); EOSINOPHILS % (M) 10 % (0-7); GIANT THROMBO% (M) 1 % (0-0); LYMPHOCYTES #M 0.3 10^3/ul (0.8-2.9); LYMPHOCYTES % (M) 15 % (15-51); MONOCYTE #M 0.2 10^3/ul (0.3-0.9); MONOCYTES % (M) 10 % (0-11); MYELOCYTES % (M) 2 % (0-0); PLATELET ESTIMATE NORMAL; REACTIVE LYMPHOCYTES #M 0.1 10^3/ul (0.0-0.0); REACTIVE LYMPHOCYTES% (M) 7 % (0-0); SEG NEUT #M 1.1 10^3/ul (1.6-7.5); SEGMENTED NEUTROPHILS (M) % 55 % (39-77); SMUDGE%M 31 % (0-0)
[2019-01-11 22:57] LABS: B-TYPE NATRIURETIC PEPTIDE 1800 PG/ML (0-125); TROPONIN-I < 0.012 ng/ml (0.000-0.120)
[2019-01-12] MEDS ORDERED: NACL 0.9% 3 ML SYG IV
[2019-01-12] MEDS ORDERED: ONDANSETRON 4 MG INJ IV
[2019-01-12] MEDS ORDERED: HYDROCODONE/APAP (5/325) TAB PO
[2019-01-12] MEDS ORDERED: ACETAMINOPHEN 325 MG TAB PO
[2019-01-12 00:45] LABS: AMPHETAMINE/METHAMPHETAMINE POSITIVE (NEGATIVE); BARBITURATES NEGATIVE (NEGATIVE); BENZODIAZEPINES NEGATIVE (NEGATIVE); CANNABINOIDS POSITIVE (NEGATIVE); COCAINE NEGATIVE (NEGATIVE); OPIATES POSITIVE (NEGATIVE)
[2019-01-12 00:49] LABS: ADD UMIC YES; UR AMORPHOUS CRYSTAL FEW /HPF (NONE SEEN); UR ASCORBIC ACID NEGATIVE (NEGATIVE); UR BACTERIA FEW /HPF (NONE SEEN); UR BILIRUBIN (Dip) NEGATIVE (NEGATIVE); UR BLOOD (Dip) NEGATIVE (NEGATIVE); UR CLARITY CLOUDY (CLEAR); UR COLOR AMBER (YELLOW); UR GLUCOSE (Dip) NEGATIVE (NEGATIVE); UR KETONES (Dip) NEGATIVE (NEGATIVE); UR LEUKOCYTE ESTERASE (Dip) 1+ Leu/ul (NEGATIVE); UR NITRITE (Dip) POSITIVE (NEGATIVE); UR RBC 6 /HPF (0-5); UR SPECIFIC GRAVITY (Dip) 1.021 (1.003-1.030); UR TOTAL PROTEIN (Dip) 1+ mg/dl (NEGATIVE); UR UROBILINOGEN (Dip) 1+ mg/dL (NEGATIVE); UR WBC 58 /HPF (0-5)
[2019-01-12] MEDS: FUROSEMIDE 20 MG INJ IV (00:57)
[2019-01-12] MEDS: POTASSIUM CHLORIDE 20 MEQ POWDER FOR ORAL SOLN PO (00:58)
[2019-01-12] MEDS: AZITHROMYCIN 600 MG TAB PO (00:58)
[2019-01-12 01:02] LABS: ETHANOL < 10.0 mg/dl (0-0)
[2019-01-12 05:01] LABS: HEMATOCRIT 40.6 % (42.0-52.0); HEMOGLOBIN 13.8 g/dl (14.0-18.0); MEAN CORPUSCULAR HEMOGLOBIN 29.1 pg (29.0-33.0); MEAN CORPUSCULAR VOLUME 85.5 fl (82.0-101.0); MEAN PLATELET VOLUME 10.1 fl (7.4-10.4); PLATELET COUNT 235 10^3/UL (140-415); POSITIVE DIFF @See below; RED BLOOD COUNT 4.75 10^6/ul (4.70-6.10); RED CELL DISTRIBUTION WIDTH 14.6 % (11.5-14.5)
[2019-01-12 05:01] LABS: WHITE BLOOD COUNT 3.3 10^3/ul (4.8-10.8)
[2019-01-12 05:04] LABS: ADD MAN DIFF? YES
[2019-01-12 05:10] LABS: HEMOGLOBIN A1C 5.5 % (0-5.9)
[2019-01-12 05:19] LABS: LACTIC ACID 0.9 mmol/L (0.5-2.0)
[2019-01-12 05:25] LABS: ALANINE AMINOTRANSFERASE 22 IU/L (13-69); ALBUMIN 4.2 g/dl (3.3-4.9); ALBUMIN/GLOBULIN RATIO 0.93; ALKALINE PHOSPHATASE 96 IU/L (42-121); ANION GAP 6 (5-13); ASPARTATE AMINO TRANSFERASE 43 IU/L (15-46); BILIRUBIN,INDIRECT 0.5 mg/dl (0-1.1); BILIRUBIN,TOTAL 0.5 mg/dl (0.2-1.3); BLOOD UREA NITROGEN 11 mg/dl (7-20); CALCIUM 9.6 mg/dl (8.4-10.2); CARBON DIOXIDE 26 mmol/L (21-31); CHLORIDE 108 mmol/L (97-110); CHOL/HDL RATIO 3.3 RATIO; CHOLESTEROL 163 mg/dl (100-200); CREATININE 0.76 mg/dl (0.61-1.24); Estimated GFR > 60 mL/min (>60); GLUCOSE 103 mg/dl (70-220); HDL CHOLESTEROL 49 mg/dl (28-71); LDL CHOLESTEROL,CALCULATED 95 mg/dl; MAGNESIUM 1.8 mg/dl (1.7-2.5); POTASSIUM 4.3 mmol/L (3.5-5.1); SODIUM 140 mmol/L (135-144); TOTAL PROTEIN 8.7 g/dl (6.1-8.1); TRIGLYCERIDES 94 mg/dl (0-149)
[2019-01-12] MEDS: CEFTRIAXONE 1 GM/50 ML (PMX) 50 ML IVPB (05:29)
[2019-01-12 06:31] LABS: BAND NEUTROPHILS #M 0.1 10^3/ul (0.0-0.6); BAND NEUTROPHILS % (M) 6 % (0-4); EOSINOPHILS % (M) 5 % (0-7); LYMPHOCYTES #M 0.2 10^3/ul (0.8-2.9); LYMPHOCYTES % (M) 7 % (15-51); MONOCYTE #M 0.5 10^3/ul (0.3-0.9); MONOCYTES % (M) 18 % (0-11); PLATELET ESTIMATE NORMAL; REACTIVE LYMPHOCYTES #M 0.4 10^3/ul (0.0-0.0); REACTIVE LYMPHOCYTES% (M) 14 % (0-0); SEG NEUT #M 1.7 10^3/ul (1.6-7.5); SEGMENTED NEUTROPHILS (M) % 50 % (39-77); SMUDGE%M 9 % (0-0)
[2019-01-12] MEDS: FLUCONAZOLE 100 MG TAB PO (08:31)
[2019-01-12] MEDS: TRIMETHOPRIM/SULFAMETHOX (DS) TAB PO (08:31)
[2019-01-12] MEDS: ACYCLOVIR 400 MG TAB PO ×2 (08:31→20:55)
[2019-01-12] MEDS: ASPIRIN (EC) 325 MG TAB PO (12:56)
[2019-01-12] MEDS: LACTOBACILLUS RHAMNOSUS CAP PO (20:55)
[2019-01-13] MEDS: CEFTRIAXONE 1 GM/50 ML (PMX) 50 ML IVPB (02:48)
[2019-01-13 06:15] LABS: WHITE BLOOD COUNT 2.1 10^3/ul (4.8-10.8)
[2019-01-13 06:15] LABS: ABNORMAL IP MESSAGE 1; HEMATOCRIT 37.6 % (42.0-52.0); HEMOGLOBIN 12.7 g/dl (14.0-18.0); MEAN CORPUSCULAR HEMOGLOBIN 28.7 pg (29.0-33.0); MEAN CORPUSCULAR HGB CONC 33.8 g/dl (32.0-37.0); MEAN CORPUSCULAR VOLUME 85.1 fl (82.0-101.0); MEAN PLATELET VOLUME 10.3 fl (7.4-10.4); PLATELET COUNT 205 10^3/UL (140-415); POSITIVE DIFF @See below; RED BLOOD COUNT 4.42 10^6/ul (4.70-6.10); RED CELL DISTRIBUTION WIDTH 14.8 % (11.5-14.5)
[2019-01-13 06:21] LABS: ALANINE AMINOTRANSFERASE 19 IU/L (13-69); ALBUMIN 3.8 g/dl (3.3-4.9); ALKALINE PHOSPHATASE 80 IU/L (42-121); ANION GAP 8 (5-13); ASPARTATE AMINO TRANSFERASE 25 IU/L (15-46); BILIRUBIN,INDIRECT 0.2 mg/dl (0-1.1); BILIRUBIN,TOTAL 0.2 mg/dl (0.2-1.3); BLOOD UREA NITROGEN 12 mg/dl (7-20); CALCIUM 9.3 mg/dl (8.4-10.2); CARBON DIOXIDE 28 mmol/L (21-31); CHLORIDE 102 mmol/L (97-110); Estimated GFR > 60 mL/min (>60); GLUCOSE 93 mg/dl (70-220); POTASSIUM 3.7 mmol/L (3.5-5.1); SODIUM 138 mmol/L (135-144); TOTAL PROTEIN 7.6 g/dl (6.1-8.1)
[2019-01-13 06:25] LABS: PARTIAL THROMBOPLASTIN TIME 28.8 Sec (23.0-35.0)
[2019-01-13 06:30] LABS: MAGNESIUM 1.8 mg/dl (1.7-2.5)
[2019-01-13 06:30] LABS: PHOSPHORUS 3.8 mg/dl (2.5-4.9)
[2019-01-13 06:50] LABS: THYROID STIMULATING HORMONE 0.693 MIU/L (0.465-4.680)
[2019-01-13 07:12] LABS: ADD MAN DIFF? YES
[2019-01-13] MEDS: TRIMETHOPRIM/SULFAMETHOX (DS) TAB PO (08:25)
[2019-01-13] MEDS: LACTOBACILLUS RHAMNOSUS CAP PO ×2 (08:25→21:04)
[2019-01-13] MEDS: FLUCONAZOLE 100 MG TAB PO (08:25)
[2019-01-13] MEDS: ASPIRIN (EC) 325 MG TAB PO (08:26)
[2019-01-13] MEDS: NICOTINE (14 MG/24 HR) PATCH TRANSDERM (08:28)
[2019-01-13] MEDS: ENOXAPARIN 40 MG/0.4 ML SYG SC (08:32)
[2019-01-13] MEDS: ACYCLOVIR 400 MG TAB PO ×2 (09:57→21:04)
[2019-01-13 10:18] LABS: ANISOCYTOSIS 1+ (0-0); BAND NEUTROPHILS #M 0.1 10^3/ul (0.0-0.6); BAND NEUTROPHILS % (M) 5 % (0-4); EOSINOPHILS % (M) 9 % (0-7); GIANT THROMBO% (M) 2 % (0-0); LYMPHOCYTES #M 0.1 10^3/ul (0.8-2.9); LYMPHOCYTES % (M) 7 % (15-51); MICROCYTOSIS 1+ (0-0); MONOCYTE #M 0.5 10^3/ul (0.3-0.9); MONOCYTES % (M) 25 % (0-11); PLASMAC%(M) 3 % (0); PLATELET ESTIMATE NORMAL; POLYCHROMASIA 1+ (0-0); REACTIVE LYMPHOCYTES #M 0.1 10^3/ul (0.0-0.0); REACTIVE LYMPHOCYTES% (M) 8 % (0-0); SEG NEUT #M 0.9 10^3/ul (1.6-7.5); SEGMENTED NEUTROPHILS (M) % 42 % (39-77); SMUDGE%M 11 % (0-0)
[2019-01-13] MEDS: HYDROCODONE/APAP (10/325) TAB PO (18:54)
[2019-01-14] MEDS: CEFTRIAXONE 1 GM/50 ML (PMX) 50 ML IVPB (01:40)
[2019-01-14] MEDS: ACYCLOVIR 400 MG TAB PO ×2 (08:11→20:24)
[2019-01-14] MEDS: FLUCONAZOLE 100 MG TAB PO (08:11)
[2019-01-14] MEDS: LACTOBACILLUS RHAMNOSUS CAP PO ×2 (08:11→20:24)
[2019-01-14] MEDS: TRIMETHOPRIM/SULFAMETHOX (DS) TAB PO (08:11)
[2019-01-14] MEDS: ASPIRIN (EC) 325 MG TAB PO (08:11)
[2019-01-14] MEDS: NICOTINE (14 MG/24 HR) PATCH TRANSDERM (08:12)
[2019-01-14] MEDS: LISINOPRIL 5 MG TAB PO (08:12)
[2019-01-14] MEDS: ENOXAPARIN 40 MG/0.4 ML SYG SC (08:16)
[2019-01-14] MEDS ORDERED: ACETAMINOPHEN 325 MG TAB PO (10:00)
[2019-01-14 13:52] LABS: LYMPHOCYTE - % CD4 (HELPER) 4 % (30-61); LYMPHOCYTE - %CD8 (SUPPRESSOR) 51 % (12-42); LYMPHOCYTE - ABSOLUTE 443 cells/uL (850-3900); LYMPHOCYTE - ABSOLUTE CD4 <20 cells/uL (490-1740); LYMPHOCYTE - ABSOLUTE CD8 226 cells/uL (180-1170); LYMPHOCYTE - CD4/CD8 RATIO 0.07 (0.86-5.00)
[2019-01-14] MEDS: HYDROCODONE/APAP (10/325) TAB PO (20:24)
[2019-01-14] MEDS ORDERED: MEGESTROL 40 MG TAB PO (21:00)
[2019-01-15] MEDS: CEFTRIAXONE 1 GM/50 ML (PMX) 50 ML IVPB (03:00)
[2019-01-15] MEDS ORDERED: PANTOPRAZOLE (EC) 40 MG TAB PO (07:00)
[2019-01-15] MEDS ORDERED: THIAMINE 100 MG TAB PO (09:00)
[2019-01-15] MEDS ORDERED: TRIMETHOPRIM/SULFAMETHOX (DS) TAB PO ×2 (09:00→21:00)
[2019-01-15] MEDS ORDERED: ATAZANAVIR 200 MG CAP PO (09:00)
[2019-01-15] MEDS ORDERED: RITONAVIR 100 MG CAP PO (09:00)
[2019-01-15] MEDS ORDERED: EMTRICITABINE/TENOFOV ALAFENAM 1 EACH TABLET PO (09:00)
[2019-01-15] MEDS ORDERED: OLANZAPINE 5 MG TAB PO (09:00)
[2019-01-15] MEDS ORDERED: ENALAPRIL 10 MG TAB PO (09:00)
[2019-01-15] MEDS: ASPIRIN (EC) 325 MG TAB PO (09:02)
[2019-01-15] MEDS: LACTOBACILLUS RHAMNOSUS CAP PO (09:02)
[2019-01-15] MEDS: NICOTINE (14 MG/24 HR) PATCH TRANSDERM (09:02)
[2019-01-15] MEDS: FLUCONAZOLE 100 MG TAB PO (09:02)
[2019-01-15] MEDS: TRIMETHOPRIM/SULFAMETHOX (DS) TAB PO (09:02)
[2019-01-15] MEDS: ACYCLOVIR 400 MG TAB PO (09:02)
[2019-01-15] MEDS: LISINOPRIL 5 MG TAB PO (09:03)
[2019-01-15] MEDS: ENOXAPARIN 40 MG/0.4 ML SYG SC (09:04)
== END 2019-01-15 14:40 | disposition home or self-care (01) | DRG 300 ==
LOC: E/R 16:54 → ICU 23:42 → 5EC 01-14 10:22 → TEL 01-12 21:52
PROVIDERS: Internal Medicine
DX: I82.613 Acute embolism and thrombosis of superficial veins of upper extremity, bilateral (principal); B20 Human immunodeficiency virus [HIV] disease; I42.9 Cardiomyopathy, unspecified; N39.0 Urinary tract infection, site not specified; M79.89 Other specified soft tissue disorders; F17.210 Nicotine dependence, cigarettes, uncomplicated; D72.819 Decreased white blood cell count, unspecified; F11.10 Opioid abuse, uncomplicated; F15.10 Other stimulant abuse, uncomplicated; F12.10 Cannabis abuse, uncomplicated; Z79.82 Long term (current) use of aspirin; Z91.14 Patient's other noncompliance with medication regimen; Z59.0 Homelessness
CPT/HCPCS: 36415; 71045; 80053; 80061; 80307; 81001; 83036; 83605; 83735; 83880; 84100; 84443; 84484; 85025; 85610; 85730; 86360; 87040; 87081; 87086; 87400; 93005; 93306; 93970; 99217; 99285-25; G0378